=== PATIENT | male | born 2000 | race Caucasian/White ===

== ENCOUNTER 2020-08-31 19:57 | Emergency (ER) | payer OTHER, MEDICAID, SELFPAY ==
[2020-08-31 20:18] VITALS: BP 133/73; PULSE 89; RESP 18; TEMP 36.4; O2SAT 98; BMI 20.5
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
--- NOTE | 2020-08-31 20:39 | XR_ITS ---
EXAMINATION: RIGHT KNEE 3 VIEWS CLINICAL INFORMATION: Right knee pain. COMPARISON: None. TECHNIQUE: AP, lateral, oblique views of the right knee were obtained. FINDINGS: There are no fractures or dislocations. There is no knee joint effusion. There is no significant soft tissue swelling. XR/XR knee RT 4V IMPRESSION: Unremarkable right knee radiographs.
[2020-08-31] MEDS: iohexoL 350 MG/ML 100 ML INFUS..BTL IV (21:22)
[2020-08-31 22:00] VITALS: BP 120/66; PULSE 68; RESP 16; TEMP 36.8; O2SAT 97
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
== END 2020-08-31 23:00 | disposition home or self-care (01) ==
PROVIDERS: Emergency Provider Emergency Medicine Emergency Medical Services; PCP Pediatrics
DX: S19.9XXA Unspecified injury of neck, initial encounter (principal); S80.01XA Contusion of right knee, initial encounter; S10.91XA Abrasion of unspecified part of neck, initial encounter; V47.5XXA Car driver injured in collision with fixed or stationary object in traffic accident, initial encounter; Y93.89 Activity, other specified; Y92.414 Local residential or business street as the place of occurrence of the external cause; Y99.8 Other external cause status
CPT/HCPCS: 70450; 70498; 73564; 99284; Q9967